=== PATIENT | female | born 1995 | race Caucasian/White ===

== ENCOUNTER → 2023-10-30 | Day surgery (SDC) | payer OTHER ==
[~2023-10-30] VITALS: Ht 149.9 cm; Wt 70.3 kg
[~2023-10-30] MED LIST: BUPIVACAINE HCL/PF 0.5% (5MG/ML) 10ML ONE; CEFAZOLIN SODIUM 1000MG/VIAL ONE; DEXAMETHASONE 4MG/ML 1ML VIAL ONE; FENTANYL CITRATE/PF 50MCG/ML 2ML VIAL IV PRN; FENTANYL CITRATE/PF 50MCG/ML 2ML VIAL ONE; GLYCOPYRROLATE 0.2 MG/ML 2ML VIAL ONE; HYDROCODONE/ACETAMINOPHEN 5/325MG TABLET PO PRN; KETOROLAC 30MG/ML VIAL ONE; LACTATED RINGERS 1,000 ML IV SCH; MEPERIDINE HCL/PF 25MG/ML CPJ IV PRN; METOCLOPRAMIDE HCL 10MG/2ML VIAL ONE; NORG1TAB95 PO; ONDANSETRON HCL 4MG/2ML INJ IV PRN; ONDANSETRON HCL 4MG/2ML INJ ONE; PROPOFOL 200MG/20ML VIAL IV ONE; ROCURONIUM BROMIDE 10MG/ML VIAL 5ML IV ONE; SKIN ADHESIVE 0.7 GM EA TOP ONE; SUCCINYLCHOLINE CHLORIDE 200MG/10ML IV ONE
[2023-10-30 07:40] LABS: UCG QC LOT# 745097; UCG SCREEN NEGATIVE
[2023-10-30 09:27] LABS: CLARITY URINE CLEAR (CLEAR); COLOR URINE YELLOW (YELLOW); GLUCOSE URINE NEGATIVE (NEGATIVE); KETONES URINE NEGATIVE (NEGATIVE); LEUKOCYTE ESTERASE URINE NEGATIVE (NEGATIVE); NITRITE URINE NEGATIVE (NEGATIVE); OCCULT BLOOD URINE NEGATIVE (NEGATIVE); PROTEIN URINE NEGATIVE (NEGATIVE); SPECIFIC GRAVITY URINE 1.007 (1.005-1.030); UROBILINOGEN URINE 0.2 E.U./dL (0.2-1.0)
[2023-10-30] MEDS: HYDROMORPHONE HCL/PF 2MG/ML CPJ IV PRN ×2 (10:13→10:58)
[2023-10-30 10:58] VITALS: BP 133/77; PULSE 99; RESP 15
== END | disposition home or self-care (01) ==
LOC: OR 06:49
PROVIDERS: ATTEND Surgery
DX: K80.10 Calculus of gallbladder with chronic cholecystitis without obstruction (principal); Z79.899 Other long term (current) drug therapy; Z98.890 Other specified postprocedural states
CPT/HCPCS: 47562; 81003; 81025; 88304; J3010; J3490 ×3; J0690; J1100; J1885; J2765; J2405; J2704; J0330; J1170